=== PATIENT | female | born 1995 | race American Indian/Alaskan Native ===

== ENCOUNTER 2017-01-04 15:07 | Emergency (ER) | payer MEDICAID, OTHER ==
[2017-01-04 15:19] VITALS: BMI 30.9
[2017-01-04] MEDS ORDERED: Sodium Chloride 0.9% 1,000 ML IV ONE (15:35)
[2017-01-04] MEDS ORDERED: Sodium Chloride 0.9% 1,000 ML ONE (15:53)
[2017-01-04 16:12] LABS: BASO % 0.6 % (0.0-2.0); EOS # 0.1 K/uL (0.0-0.7); EOS % 1.3 % (0.0-4.0); HEMATOCRIT 39.5 % (34.0-47.0); LYMPH # 2.4 K/uL (1.0-4.3); LYMPH % 35.6 % (20.0-40.0); MEAN CELL VOLUME 85.4 fL (81.0-99.0); MEAN CORPUSCULAR HGB CONC 32.8 g/dL (33.0-37.0); MEAN PLATELET VOLUME 7.6 fL (7.2-11.7); MONO # 0.5 K/uL (0.0-0.8); MONO % 7.2 % (0.0-10.0); RED CELL DISTRIBUTION WIDTH 13.9 % (11.5-14.5); WHITE BLOOD COUNT 6.8 K/uL (4.8-10.8)
--- NOTE | 2017-01-04 16:16 | C.PDOC ---
History Of Present Illness Patient is a 21 year old female, with past medical history of asthma, and pulmonary embolism, presents to Emergency Department for evaluation of lower abdominal pain radiating to back for the past week. Notes taking Ibuprofen without relief. Also complaints of vaginal bleeding for over 3 weeks. She reports her period started 3 weeks ago, and still continues to have bleeding intermittently. Notes using 3-4 pads a day. States that she was recently diagnosed with a cyst in the left ovary. Denies urinary symptoms, chest pain, SOB, dizziness, fever. Time Seen by Provider: 01/04/17 15:25 Chief Complaint (Nursing): Abdominal Pain History Per: Patient History/Exam Limitations: no limitations Onset/Duration Of Symptoms: Days Current Symptoms Are (Timing): Still Present Location Of Pain/Discomfort: Suprapubic Radiation Of Pain To:: None Quality Of Discomfort: "Pain" Associated Symptoms: Back Pain. denies: Loss Of Appetite, Constipation, Urinary Symptoms Exacerbating Factors: None Alleviating Factors: None Recent travel outside of the [place]: No Additional History Per: Patient Abnormal Vaginal Bleeding: Yes Past Medical History Reviewed: Historical Data, Nursing Documentation, Vital Signs Vital Signs: Last Vital Signs Temp 97.7 F 01/04/17 16:47 Pulse 67 01/04/17 16:47 Resp 18 01/04/17 16:47 BP 117/81 01/04/17 16:47 Pulse Ox 100 01/04/17 16:47 - Medical History PMH: Asthma, Pulmonary Embolism Surgical History: No Surg Hx - [facility] Procedures INJECT/INFUSE ELECTROLYT (07/02/13) INJECT/INFUSE NEC (12/22/14) Family History: States: CAD, Diabetes - Social History Hx Tobacco Use: No Hx Alcohol Use: Yes Hx Substance Use: No - Immunization History Hx Tetanus Toxoid Vaccination: No Hx Influenza Vaccination: No Hx Pneumococcal Vaccination: No Review Of Systems Except As Marked, All Systems Reviewed And Found Negative. Constitutional: Negative for: Fever, Chills Gastrointestinal: Positive for: Abdominal Pain (lower abdomen). Negative for: Nausea, Vomiting, Diarrhea, Constipation Genitourinary: Positive for: Vaginal Bleeding. Negative for: Dysuria, Frequency , Incontinence, Hematuria, Vaginal Discharge Musculoskeletal: Positive for: Back Pain (lower) Neurological: Negative for: Weakness, Numbness Physical Exam - Physical Exam Appears: Non-toxic, No Acute Distress Skin: Warm, Dry, No Rash Head: Atraumatic, Normacephalic Eye(s): bilateral: Normal Inspection Oral Mucosa: Moist Neck: Normal ROM, Supple Chest: Symmetrical Cardiovascular: Rhythm Regular, No Murmur Respiratory: Normal Breath Sounds, No Rales, No Rhonchi, No Wheezing Gastrointestinal/Abdominal: Bowel Sounds, Soft, Tenderness (suprapubic mild), No Mass, No Distention, No Guarding, No Rebound Back: Normal Inspection, No CVA Tenderness, No Vertebral Tenderness, No Paraspinal Tenderness Extremity: Bilateral: Atraumatic, Normal Color And Temperature, Normal ROM Neurological/Psych: Oriented x3, Normal Speech Gait: Steady ED Course And Treatment - Laboratory Results Result Diagrams: 01/04/17 16:08 01/04/17 16:08 Lab Interpretation: No Acute Changes O2 Sat by Pulse Oximetry: 98 (RA) Pulse Ox Interpretation: Normal Medical Decision Making Medical Decision Making: Impression: 21 y/o female presents with 3 weeks of vaginal bleeding Plan: * IV fluids, Tylenol * Blood work, UA * Reassess and dispo Progress note: Labs reviewed and H/H stable. UA shows RBCs. No other acute abnormality On re-evaluation, patient is resting comfortably, no acute distress. Abdomen remains soft. Vital signs stable. Explain results to patient. REcommend follow up with power electronics research engineer and Rx given Disposition Counseled Patient/Family Regarding: Studies Performed, Diagnosis, Need For Followup, Rx Given - [facility]position [facility] Disposition: HOME/ ROUTINE Disposition Time: 16:45 Condition: STABLE Additional Instructions: Follow up with the clinic in 2-5 days for further evaluation. Take medications as prescribed for pain and bleeding. Return to the emergency department at any time if symptoms persist or worsen. You may call master brewer [employer] for any assistance [phone]. Prescriptions: MedroxyPROGESTERone [Provera] 1 tab PO DAILY #10 tab Naproxen [Naprosyn] 1 tab PO BID PRN #25 tab PRN Reason: Pain Instructions: Dysfunctional Uterine Bleeding (ED) Forms: [facility] ([place]ian) - POA Present On Arrival: None - Clinical Impression Clinical Impression: DUB (dysfunctional uterine bleeding) - PA / MEDICAL REGISTRAR / Resident Statement MD/DO has reviewed & agrees with the documentation as recorded. - Scribe Statement The provider has reviewed the documentation as recorded by the Scribe Kripal Beltran All medical record entries made by the Larry were at my direction and personally dictated by me. I have reviewed the chart and agree that the record accurately reflects my personal performance of the history, physical exam, medical decision making, and the department course for this patient. I have also personally directed, reviewed, and agree with the discharge instructions and disposition.
[2017-01-04 16:19] LABS: CHLORIDE 103 mmol/L (98-107); POTASSIUM 4.3 mmol/L (3.6-5.2); SODIUM 141 mmol/L (132-148)
[2017-01-04 16:21] LABS: GFR AFRICAN-AMERICAN > 60; INR 1.1
[2017-01-04 16:22] LABS: ALB/GLOB RATIO 1.2 (1.0-2.1); ALKALINE PHOSPHATASE 67 U/L (38-126); ALT/SGPT 27 U/L (9-52); AST/SGOT 21 U/L (14-36); BILIRUBIN,TOTAL 0.5 mg/dL (0.2-1.3); BLOOD UREA NITROGEN 12 mg/dL (7-17); CARBON DIOXIDE 29 mmol/L (22-30); GLUCOSE,RANDOM 76 mg/dL (65-105); TOTAL PROTEIN 7.3 g/dL (6.3-8.3)
[2017-01-04 16:23] LABS: CALCIUM 9.6 mg/dl (8.6-10.4)
[2017-01-04 16:29] LABS: RBC URINE 8 /hpf (0-3); URINE BACTERIA RARE (<OCC); URINE BILIRUBIN NEGATIVE (NEGATIVE); URINE COLOR Yellow (YELLOW); URINE GLUCOSE (UA) NORMAL (Normal); URINE KETONE NEGATIVE (NEGATIVE); URINE LEUKOCYTE ESTERASE NEG Leu/uL (Negative); URINE PROTEIN NEGATIVE (NEGATIVE); URINE UROBILINOGEN NORMAL mg/dL (0.2-1.0); WBC URINE 1 /hpf (0-5)
[2017-01-04 16:32] LABS: URINE BLOOD 2+ (NEGATIVE)
[2017-01-04 16:48] VITALS: BP 117/81; PULSE 67; RESP 18; TEMP 97.7
[2017-01-04 18:36] VITALS: O2SAT 98
== END 2017-01-04 16:57 | disposition home or self-care (01) ==
LOC: C.ER 15:07
DX: N93.8 Other specified abnormal uterine and vaginal bleeding (principal)
CPT/HCPCS: 80053; 81001; 84703; 85025; 85610; 85730; 99284; J7040

== ENCOUNTER 2018-03-19 06:41 | Day surgery (SDC) | payer OTHER ==
[2017-11-25 12:17] VITALS: BMI 32.9
[2018-03-19] MEDS ORDERED: Propofol 10 mg/ml Inj (20 ML) ONE (08:38)
[2018-03-19] MEDS ORDERED: Midazolam 2 MG/2 ML VIAL ONE (08:39)
[2018-03-19] MEDS ORDERED: cefOXitin IV 2 gm in Dextrose 2 GM/50 ML BAG IVPB ONE (09:30)
[2018-03-19] MEDS ORDERED: Bupivacaine 0.25% 20 ML INJ IJ ONE (09:52)
[2018-03-19] MEDS ORDERED: HYDROmorphone 0.5 mg/0.5 ml ISec IVP PRN (10:42)
[2018-03-19] MEDS ORDERED: HYDROmorphone 0.5 mg/0.5 ml ISec ONE (11:05)
[2018-03-19 12:28] VITALS: RESP 16; O2SAT 97
[2018-03-19 15:08] VITALS: BP 105/54; PULSE 71; TEMP 97.2
--- NOTE | 2018-03-20 13:14 | OP ---
PROCEDURE DATE: 03/19/2018 PREOPERATIVE DIAGNOSES: Chronic pelvic pain, left ovarian cyst, menorrhagia. POSTOPERATIVE DIAGNOSIS: Left dermoid cyst. SURGEON: Bernardo Lester MD ANESTHESIA: General. FLOW TRADER: Guilherme Robles MD COMPLICATIONS: Nil. INDICATIONS: After the risks, benefits, and alternatives of the planned procedures including but not limited to infection, hemorrhage, deep vein thrombosis, atelectasis, pneumonia, pulmonary embolism, damage to the bladder, damage to the ureter, renal insufficiency, renal failure, wound infection, wound dehiscence, incisional hernia, keloid formation, damage to the large and small intestines, damage to the inferior vena cava and aorta requiring extensive repair, anesthesia complications, electrolyte imbalance, possibility of , fluid overload, cerebral edema, air embolism and other complications that were discussed, but are not listed above had been explained to the patient and all her questions were answered, informed consent was obtained. DESCRIPTION OF PROCEDURE: The patient was taken to the operating room in a stable condition. Under a suitable level of general anesthesia, she was prepped and draped in a sterile fashion after having been placed in a dorsal lithotomy position. A Trevizo catheter was inserted. Examination under anesthesia revealed left adnexal fullness. A weighted speculum was inserted into the vagina and the anterior lip of the cervix was grasped using a single-tooth tenaculum, endocervical curettage was performed and scant tissue was obtained. The uterus was sounded to 7 cm. The cervix was dilated with a #16 Hanks dilator. An endometrial curettage was performed and scant tissue was obtained. A HUMI catheter was inserted into the cervix and insufflated into place. Through an umbilical vertical incision, a Veress needle was inserted. A 5-mm puncture site was made three fingerbreadths above the pubic symphysis through which a 5 mm trocar and sleeve were inserted. A 12-mm puncture site was made in the right iliac fossa through which a 4 mm trocar and sleeve were inserted. An incision was made over the cyst and was immediately noted that there was hair within the cyst itself consistent with the dermoid cyst. lining was then removed completely it from the normal ovarian tissue. The excision site was fulgurated using cautery. A dermoid cyst was then delivered through the right iliac fossa port with the help of an Endopouch. The peritoneal cavity was then irrigated using copious amounts of saline. The saline was evacuated. The right iliac fossa sleeve was removed under laparoscopic guidance. The fascia was closed using 0 Prolene suture with the help of a closure device. The suprapubic sleeve was removed under laparoscopic guidance. The abdomen was deflated with carbon dioxide and the umbilical sleeve was removed under laparoscopic guidance. The skin incisions were closed using 4-0 Monocryl. Estimated blood loss for the procedure was less than 1 mL. Pad, needle, and instrument counts were correct x2. There were no complications. Bernardo Lester MD
== END 2018-03-19 15:15 | disposition home or self-care (01) ==
LOC: C.SDS 06:41
PROVIDERS: ATTEND Obstetrics & Gynecology Reproductive Endocrinology
DX: D27.1 Benign neoplasm of left ovary (principal); N92.0 Excessive and frequent menstruation with regular cycle; G89.29 Other chronic pain
CPT/HCPCS: 58662; 88304; 88305; J0694; J1100; J1170; J1885; J2001; J2250; J2405; J2704; J3010